=== PATIENT | female | born 2000 | race Caucasian/White ===

== ENCOUNTER → 2021-03-04 | Outpatient (CLI) | payer OTHER ==
--- NOTE | 2021-03-05 04:10 | REP ---
INDICATION: F/U ANATOMY COMPARISON: None. TECHNIQUE: Transabdominal obstetrical ultrasound with color Doppler evaluation. FINDINGS: Examination demonstrates a single live intrauterine in variable presentation. motion is identified by technologist. Placenta is noted posterior and grade 0 without evidence for placenta previa or abruption. Amniotic fluid volume is normal. Cervix measures 4.1 cm in length and appears closed.. Selected gestational age: 23 weeks 0 days with JEET 07/01/2021. Gestational age by current measurements 23 weeks 0 days with JEET 07/01/2021. FHR equals 153 beats per minute. BPD: 5.3 cm; 22 weeks 0 days; 25% HC: 20 cm; there is 22 weeks 1 day; 26% AC: 18.8 cm; 23 weeks 4 days; 62% FL: 4.1 cm; 23 weeks 2 days; 56% HL: 3.9 cm; 23 weeks 5 days; 62% HC/AC: 1.07 Estimated weight 575 grams (54thpercentile). Anatomical assessment demonstrates normal structures including cranium, choroid plexus, cavum, cerebellum/posterior fossa, facial features, lungs, four-chamber heart/ventricular outflow tracts, diaphragm, stomach, cord insertion/three-vessel cord, kidneys/bladder, spine, and extremities. IMPRESSION: Single live intrauterine in variable presentation demonstrating appropriate estimated weight and growth. Anatomical assessment is complete and normal. <Electronically signed by Inocente Ya > 03/05/21 [id number]
== END ==
LOC: M WHC 15:40
PROVIDERS: ATTEND Obstetrics & Gynecology
DX: Z34.82 Encounter for supervision of other normal pregnancy, second trimester (principal); Z3A.23 23 weeks gestation of pregnancy

== ENCOUNTER → 2021-03-31 | Outpatient (CLI) | payer OTHER ==
[2021-03-31 11:12] LABS: HEMATOCRIT 34.8 % (36.0-47.0); HEMOGLOBIN 11.9 g/dl (12.0-15.5); MEAN CORPUSCULAR HEMOGLOBIN 31.5 pg (27.0-33.0); MEAN CORPUSCULAR HGB CONC 34.2 g/dl (32.0-36.5); MEAN CORPUSCULAR VOLUME 92.1 fl (80.0-96.0); PLATELET COUNT, AUTOMATED 176 10^3/uL (150-450); RED BLOOD COUNT 3.78 10^6/uL (4.00-5.40)
[2021-03-31 14:03] LABS: GC DNA AMPLIFICATION NEGATIVE (NEGATIVE)
== END ==
LOC: M PLALAB 08:14
PROVIDERS: ATTEND Obstetrics & Gynecology
DX: Z34.82 Encounter for supervision of other normal pregnancy, second trimester (principal); Z36.89 Encounter for other specified antenatal screening

== ENCOUNTER → 2021-06-02 | Outpatient (REF) | payer OTHER ==
[~2021-06-02] MED LIST: PRENTAB9 PO; TUMS500C PO
== END ==
LOC: M PLALAB 09:09
PROVIDERS: ATTEND Specialist
DX: Z34.83 Encounter for supervision of other normal pregnancy, third trimester (principal); Z36.85 Encounter for antenatal screening for Streptococcus B; Z3A.35 35 weeks gestation of pregnancy
CPT/HCPCS: 87081; G0463

== ENCOUNTER 2021-06-13 03:15 | Outpatient (CLI) | payer OTHER ==
[~2021-06-13] VITALS: Ht 157.5 cm; Wt 64.3 kg
[2021-06-13 03:36] VITALS: BP 120/82
[2021-06-13] MEDS ORDERED: TUMS500C PO (03:37)
[2021-06-13] MEDS ORDERED: PRENTAB9 PO (03:37)
[2021-06-13 04:27] VITALS: BP 123/77
[2021-06-13 05:33] VITALS: BP 117/66
[2021-06-13 06:50] VITALS: BP 120/73
== END 2021-06-13 07:17 | disposition home or self-care (01) ==
LOC: M LDO 03:15
PROVIDERS: ATTEND Advanced Practice Midwife
DX: O60.03 Preterm labor without delivery, third trimester (principal); O26.853 Spotting complicating pregnancy, third trimester; Z3A.37 37 weeks gestation of pregnancy
CPT/HCPCS: 59025; G0378; G0463